=== PATIENT | female | born 1950 | race African-American/Black ===

== ENCOUNTER 2021-12-07 10:33 | Inpatient (IN) | payer MEDICARE, MEDICAID ==
[~2021-12-07] VITALS: Ht 160 cm; Wt 59.9 kg
[2021-12-07] MEDS ORDERED: SODIUM CHLORIDE 0.9% 1,000 ML IV ONE (11:30)
[2021-12-07 11:32] LABS: HEMATOCRIT. 35.3 % (36.0-48.0); HEMOGLOBIN. 12.1 g/dL (12.0-16.0); LYMPHOCYTES % 10.9 % (20.0-50.0); MEAN CORPUSCULAR HEMOGLOBIN 28.8 pg (28.0-32.0); MEAN CORPUSCULAR VOLUME 84.1 fL (81.0-99.0); MEAN PLATELET VOLUME 7.7 fl (7.4-10.4); MONOCYTES % 7.6 % (2.0-8.0); NEUTROPHILS % 81.5 % (40.0-76.0); PLATELET 214 x1000/uL (130-400); RED BLOOD CELL COUNT 4.19 mill/uL (4.2-5.4); RED CELL DISTRIBUTION WIDTH 13.5 % (11.6-14.6)
[2021-12-07 11:37] LABS: CHLORIDE 80 mEq/L (98-107)
[2021-12-07 11:40] LABS: INR 0.9; PROTHROMBIN TIME 10.2 sec (9.6-11.0)
[2021-12-07] MEDS ORDERED: ONDANSETRON HCL 4MG/2ML INJ IV PRN ×2 (16:45→18:15)
[2021-12-07] MEDS ORDERED: MORPHINE SULFATE 2 MG/ML CPJ (NOT FOR IM USE) IV PRN (16:45)
[2021-12-07 17:00] VITALS: BP 89/40
[2021-12-07] MEDS: FAMOTIDINE 20MG TABLET PO SCH ×2 (17:00→18:05)
[2021-12-07] MEDS ORDERED: AMLO10TA80 PO (17:22)
[2021-12-07] MEDS ORDERED: LOSA100T32 PO (17:22)
[2021-12-07] MEDS ORDERED: METH-773 PO (17:26)
[2021-12-07] MEDS ORDERED: METF-873 PO (17:26)
[2021-12-07] MEDS ORDERED: SPIR25TA6 PO (17:26)
[2021-12-07] MEDS ORDERED: CALC-1098 PO (17:26)
[2021-12-07] MEDS ORDERED: DYR5 PO (17:26)
[2021-12-07] MEDS ORDERED: SIMV-43 PO (17:26)
[2021-12-07] MEDS ORDERED: DEXT 5% WATER + KCL 40MEQ/L 1,000 ML IV SCH (18:00)
[2021-12-07] MEDS: POTASSIUM CHLORIDE 20MEQ TABLET SR PO NR ×2 (18:05→18:32)
[2021-12-07] MEDS ORDERED: MAGNESIUM/ALUMINUM HYDROXIDE/SIMETHICONE 30ML UDC PO PRN (18:15)
[2021-12-07] MEDS ORDERED: ACETAMINOPHEN 325MG TABLET PO PRN (18:15)
[2021-12-07] MEDS ORDERED: ENOXAPARIN 40MG/0.4ML SYR SUBCUT SCH (18:15)
[2021-12-07] MEDS ORDERED: IPRATROPIUM/ALBUTEROL 0.5-3(2.5)MG/3ML NEB NEB PRN (18:15)
[2021-12-07] MEDS ORDERED: CLONIDINE 0.1MG TABLET PO PRN (18:15)
[2021-12-07] MEDS ORDERED: CEFTRIAXONE 1 G PREMIX 50 ML IV SCH (18:30)
[2021-12-07] MEDS ORDERED: DEXTROSE 50% WATER 50ML SYRINGE IV PRN (18:30)
[2021-12-07] MEDS: SODIUM CHLORIDE 0.9% 1,000 ML IV SCH (18:30)
[2021-12-07] MEDS ORDERED: POTASSIUM CHLORIDE INJ 40 MEQ in DEXT 5% WATER 250 ML IV ONE (19:00)
[2021-12-07 19:11] LABS: FOLIC ACID (FOLATE) SERUM > 20.00 ng/mL (>5.38); VITAMIN B12 SERUM > 2000.0 pg/mL (211-911)
[2021-12-07] MEDS: ENOXAPARIN 30MG/0.3ML SYR SUBCUT SCH (19:49)
[2021-12-07] MEDS: CEFTRIAXONE 1,000 MG in DEXTROSE 5% WATER 50 ML IV SCH (19:49)
[2021-12-07 20:00] VITALS: BP 93/38
[2021-12-07] MEDS: INSULIN LISPRO 100 UNITS/ML SUBCUT SCH (21:00)
[2021-12-07] MEDS: BLOOD SUGAR DIAGNOSTIC STRIP TEST SCH (21:38)
[2021-12-07] MEDS: KCL 20MEQ/100ML X 2 FOR TOTAL KCL 40MEQ/200ML IV SCH ×2 (21:38→22:54)
[2021-12-07] MEDS: HYDROCODONE/ACETAMINOPHEN 5/325MG TABLET PO PRN (22:52)
[2021-12-07] MEDS ORDERED: SODIUM CHLORIDE 0.9% 500 ML IV NR (23:45)
[2021-12-08] VITALS: BP 86/36
[2021-12-08 04:00] VITALS: BP 96/43
[2021-12-08] MEDS: SODIUM CHLORIDE 0.9% 1,000 ML IV SCH ×2 (04:30→14:25)
[2021-12-08] MEDS ORDERED: NALOXONE HCL 0.4MG/ML VIAL IV PRN (05:30)
[2021-12-08] MEDS: INSULIN LISPRO 100 UNITS/ML SUBCUT SCH ×4 (05:52→20:08)
[2021-12-08] MEDS: BLOOD SUGAR DIAGNOSTIC STRIP TEST SCH ×4 (05:52→20:08)
[2021-12-08] MEDS: MORPHINE SULFATE 2 MG/ML CPJ (NOT FOR IM USE) IV PRN (05:58)
[2021-12-08 06:34] LABS: HEMATOCRIT 29.9 % (36.0-48.0); HEMOGLOBIN 10.2 g/dL (12.0-16.0); MEAN CORPUSCULAR HEMOGLOBIN 29.1 pg (28.0-32.0); MEAN CORPUSCULAR VOLUME 85.2 fL (81.0-99.0); PLATELET 157 x1000/uL (130-400); RED BLOOD CELL COUNT 3.51 mill/uL (4.2-5.4); RED CELL DISTRIBUTION WIDTH 13.6 % (11.6-14.6)
[2021-12-08 06:57] LABS: CHLORIDE 91 mEq/L (98-107)
[2021-12-08 08:00] VITALS: BP 90/45
[2021-12-08] MEDS: FAMOTIDINE 20MG TABLET PO SCH (09:00)
[2021-12-08] MEDS ORDERED: SODIUM CHLORIDE 0.9% 500 ML IV SCH (10:00)
[2021-12-08] MEDS ORDERED: SODIUM CHLORIDE 0.9% 1000ML BAG (SEPSIS BOLUS) IV ONE (10:00)
[2021-12-08 12:00] VITALS: BP 84/37
[2021-12-08] MEDS ORDERED: POTASSIUM CHLORIDE INJ 40 MEQ in DEXT 5% WATER 250 ML IV ONE (12:45)
[2021-12-08 13:15] LABS: CLARITY URINE CLOUDY (CLEAR); COLOR URINE YELLOW (YELLOW); KETONES URINE TRACE (NEGATIVE); LEUKOCYTE ESTERASE URINE 3+ (NEGATIVE); NITRITE URINE NEGATIVE (NEGATIVE); OCCULT BLOOD URINE 2+ (NEGATIVE); PROTEIN URINE 1+ (NEGATIVE); SPECIFIC GRAVITY URINE 1.016 (1.005-1.030); UROBILINOGEN URINE 0.2 E.U./dL (0.2-1.0)
[2021-12-08] MEDS: PANTOPRAZOLE SODIUM 40 MG/VIAL IV SCH (13:30)
[2021-12-08 13:36] LABS: *AMPHETAMINES SCREEN URINE NEGATIVE (NEGATIVE); *BARBITURATES SCREEN URINE NEGATIVE (NEGATIVE); *BENZODIAZEPINES SCREEN URINE NEGATIVE (NEGATIVE); *COCAINE SCREEN URINE NEGATIVE (NEGATIVE); CANNABINOID URINE SCREEN NEGATIVE (NEGATIVE); METHADONE URINE SCREEN NEGATIVE (NEGATIVE); OPIATES URINE SCREEN NEGATIVE (NEGATIVE); PHENCYCLIDINE URINE SCREEN NEGATIVE (NEGATIVE)
[2021-12-08 14:11] LABS: PHOSPHORUS URINE RANDOM 27 mg/dL
[2021-12-08] MEDS: ACETAMINOPHEN 325MG TABLET PO PRN (14:44)
[2021-12-08] MEDS: KCL 20MEQ/100ML X 2 FOR TOTAL KCL 40MEQ/200ML IV SCH ×2 (14:44→17:00)
[2021-12-08 16:00] VITALS: BP 111/46
[2021-12-08] MEDS: DOCUSATE SODIUM 100MG CAPSULE PO SCH (17:45)
[2021-12-08] MEDS: CEFTRIAXONE 1,000 MG in DEXTROSE 5% WATER 50 ML IV SCH (19:51)
[2021-12-08] MEDS: ENOXAPARIN 30MG/0.3ML SYR SUBCUT SCH (19:51)
[2021-12-08 20:00] VITALS: BP 106/42
[2021-12-08] MEDS ORDERED: POTASSIUM CHLORIDE 20MEQ/PACKET PO NR (20:00)
[2021-12-09] VITALS: BP 103/50
[2021-12-09] MEDS: SODIUM CHLORIDE 0.9% 1,000 ML IV SCH ×2 (00:30→15:08)
[2021-12-09 08:00] VITALS: BP 111/40
[2021-12-09 08:10] LABS: *CREATININE RANDOM URINE 169.3 mg/dL (Not Estab.); MICROALBUMIN RANDOM URINE 40.2 ug/mL (Not Estab.)
[2021-12-09 11:56] LABS: BASOPHILS % 0.3 % (0.0-2.0); EOSINOPHILS % 0.9 % (0.0-5.0); HEMATOCRIT. 29.5 % (36.0-48.0); HEMOGLOBIN. 10.1 g/dL (12.0-16.0); LYMPHOCYTES % 11.5 % (20.0-50.0); MEAN CORPUSCULAR HEMOGLOBIN 29.6 pg (28.0-32.0); MEAN CORPUSCULAR VOLUME 86.7 fL (81.0-99.0); MEAN PLATELET VOLUME 7.4 fl (7.4-10.4); MONOCYTES % 7.5 % (2.0-8.0); NEUTROPHILS % 79.8 % (40.0-76.0); PLATELET 151 x1000/uL (130-400); RED BLOOD CELL COUNT 3.41 mill/uL (4.2-5.4); RED CELL DISTRIBUTION WIDTH 13.7 % (11.6-14.6)
[2021-12-09 12:00] VITALS: BP 108/53
[2021-12-09] MEDS ORDERED: NA PHOS,M-B/NA PHOS,DI-BA ENEMA 118ML PR SCH (12:30)
[2021-12-09] MEDS: INSULIN LISPRO 100 UNITS/ML SUBCUT SCH ×3 (12:40→20:58)
[2021-12-09] MEDS: BLOOD SUGAR DIAGNOSTIC STRIP TEST SCH ×3 (13:17→20:58)
[2021-12-09 13:50] LABS: CHLORIDE 100 mEq/L (98-107)
[2021-12-09 14:15] LABS: PHOSPHORUS 1.6 mg/dL (2.5-4.9)
[2021-12-09] MEDS: DOCUSATE SODIUM 100MG CAPSULE PO SCH ×2 (15:08→17:09)
[2021-12-09] MEDS: PANTOPRAZOLE SODIUM 40 MG/VIAL IV SCH (15:08)
[2021-12-09 16:00] VITALS: BP 104/51
[2021-12-09 20:00] VITALS: BP 125/63
[2021-12-09] MEDS ORDERED: MAGNESIUM HYDROXIDE 400MG/5ML 30ML UDC PO NR (20:00)
[2021-12-09] MEDS ORDERED: POTASSIUM CHLORIDE 20MEQ/PACKET PO NR (20:00)
[2021-12-09] MEDS: ENOXAPARIN 30MG/0.3ML SYR SUBCUT SCH (20:57)
[2021-12-09] MEDS: CEFTRIAXONE 1,000 MG in DEXTROSE 5% WATER 50 ML IV SCH (20:57)
[2021-12-10] VITALS: BP 111/57
[2021-12-10 04:00] VITALS: BP 133/66
[2021-12-10] MEDS: SODIUM CHLORIDE 0.9% 1,000 ML IV SCH ×2 (04:00→09:49)
[2021-12-10 06:15] LABS: BASOPHILS % 0.2 % (0.0-2.0); EOSINOPHILS % 1.5 % (0.0-5.0); HEMATOCRIT. 29.7 % (36.0-48.0); HEMOGLOBIN. 10.2 g/dL (12.0-16.0); LYMPHOCYTES % 14.8 % (20.0-50.0); MEAN CORPUSCULAR HEMOGLOBIN 29.4 pg (28.0-32.0); MEAN CORPUSCULAR VOLUME 85.8 fL (81.0-99.0); MEAN PLATELET VOLUME 7.1 fl (7.4-10.4); MONOCYTES % 8.2 % (2.0-8.0); NEUTROPHILS % 75.3 % (40.0-76.0); PLATELET 148 x1000/uL (130-400); RED BLOOD CELL COUNT 3.46 mill/uL (4.2-5.4); RED CELL DISTRIBUTION WIDTH 13.5 % (11.6-14.6)
[2021-12-10] MEDS: INSULIN LISPRO 100 UNITS/ML SUBCUT SCH ×4 (06:15→21:00)
[2021-12-10] MEDS: BLOOD SUGAR DIAGNOSTIC STRIP TEST SCH ×4 (06:15→21:15)
[2021-12-10 06:56] LABS: CHLORIDE 111 mEq/L (98-107)
[2021-12-10 08:00] VITALS: BP 134/71
[2021-12-10 08:38] LABS: PHOSPHORUS 0.4 mg/dL (2.5-4.9)
[2021-12-10] MEDS: POTASSIUM-SODIUM PHOSPHATE POWDER PACKET PO SCH ×2 (09:46→16:11)
[2021-12-10] MEDS: PANTOPRAZOLE SODIUM 40 MG/VIAL IV SCH ×2 (09:46→16:10)
[2021-12-10] MEDS: DOCUSATE SODIUM 100MG CAPSULE PO SCH ×2 (09:46→16:11)
[2021-12-10] MEDS ORDERED: POTASSIUM PHOS,M-BASIC-D-BASIC 20 MMOL in DEXT 5% WATER 250 ML IV SCH (10:00)
[2021-12-10 10:55] LABS: HEMATOCRIT 29.7 % (36.0-48.0); HEMOGLOBIN 10.3 g/dL (12.0-16.0); MEAN CORPUSCULAR HEMOGLOBIN 29.6 pg (28.0-32.0); MEAN CORPUSCULAR VOLUME 85.9 fL (81.0-99.0); PLATELET 146 x1000/uL (130-400); RED BLOOD CELL COUNT 3.46 mill/uL (4.2-5.4); RED CELL DISTRIBUTION WIDTH 13.7 % (11.6-14.6)
[2021-12-10] MEDS: ACETAMINOPHEN 325MG TABLET PO PRN (11:50)
[2021-12-10 12:00] VITALS: BP 126/63
[2021-12-10] MEDS ORDERED: NA PHOS,M-B/NA PHOS,DI-BA ENEMA 118ML PR SCH (15:00)
[2021-12-10 16:00] VITALS: BP 114/62
[2021-12-10] MEDS ORDERED: MAGNESIUM HYDROXIDE 400MG/5ML 30ML UDC PO PRN (18:45)
[2021-12-10] MEDS ORDERED: SENNOSIDES 8.6MG TABLET PO PRN (18:45)
[2021-12-10 20:00] VITALS: BP 144/90
[2021-12-10] MEDS: CEFTRIAXONE 1,000 MG in DEXTROSE 5% WATER 50 ML IV SCH (21:14)
[2021-12-10] MEDS: ENOXAPARIN 30MG/0.3ML SYR SUBCUT SCH (21:15)
[2021-12-10] MEDS: MORPHINE SULFATE 2 MG/ML CPJ (NOT FOR IM USE) IV PRN (23:19)
[2021-12-11] VITALS: BP 117/60
[2021-12-11] MEDS: SENNOSIDES 8.6MG TABLET PO SCH ×3 (00:11→18:11)
[2021-12-11] MEDS: POLYVINYL ALCOHOL OPHTH DROPS 15ML EACHEYE SCH ×5 (00:12→23:53)
[2021-12-11] MEDS: SODIUM CHLORIDE 0.9% 1,000 ML IV SCH (03:09)
[2021-12-11 03:58] VITALS: BP 165/79
[2021-12-11] MEDS: INSULIN LISPRO 100 UNITS/ML SUBCUT SCH ×4 (06:19→20:37)
[2021-12-11] MEDS: BLOOD SUGAR DIAGNOSTIC STRIP TEST SCH ×4 (06:19→20:36)
[2021-12-11 07:08] LABS: BASOPHILS % 0.4 % (0.0-2.0); CHLORIDE 115 mEq/L (98-107); EOSINOPHILS % 2.4 % (0.0-5.0); HEMOGLOBIN. 9.6 g/dL (12.0-16.0); LYMPHOCYTES % 19.4 % (20.0-50.0); MEAN CORPUSCULAR HEMOGLOBIN 29.3 pg (28.0-32.0); MEAN CORPUSCULAR VOLUME 85.7 fL (81.0-99.0); MEAN PLATELET VOLUME 6.6 fl (7.4-10.4); MONOCYTES % 10.9 % (2.0-8.0); NEUTROPHILS % 66.9 % (40.0-76.0); PLATELET 139 x1000/uL (130-400); RED BLOOD CELL COUNT 3.27 mill/uL (4.2-5.4)
[2021-12-11 07:17] LABS: PHOSPHORUS 1.1 mg/dL (2.5-4.9)
[2021-12-11 08:00] VITALS: BP 138/70
[2021-12-11] MEDS: DOCUSATE SODIUM 100MG CAPSULE PO SCH (08:27)
[2021-12-11] MEDS: POLYETHYLENE GLYCOL 3350 (17GM) 1 DOSE PACK PO SCH (08:28)
[2021-12-11] MEDS: POTASSIUM-SODIUM PHOSPHATE POWDER PACKET PO SCH ×2 (08:29→16:54)
[2021-12-11] MEDS: PANTOPRAZOLE SODIUM 40 MG/VIAL IV SCH ×2 (08:29→16:54)
[2021-12-11] MEDS ORDERED: MAGNESIUM 2 G PREMIX 50 ML IV ONE (11:00)
[2021-12-11 12:00] VITALS: BP 130/60
[2021-12-11] MEDS: SODIUM CHLORIDE 0.45% 1,000 ML IV SCH (12:06)
[2021-12-11 12:10] LABS: HEMATOCRIT 29.7 % (36.0-48.0); HEMOGLOBIN 9.9 g/dL (12.0-16.0); MEAN CORPUSCULAR HEMOGLOBIN 28.8 pg (28.0-32.0); MEAN CORPUSCULAR VOLUME 86.8 fL (81.0-99.0); PLATELET 154 x1000/uL (130-400); RED BLOOD CELL COUNT 3.43 mill/uL (4.2-5.4); RED CELL DISTRIBUTION WIDTH 13.7 % (11.6-14.6)
[2021-12-11] MEDS ORDERED: POTASSIUM PHOS,M-BASIC-D-BASIC 15 MMOL in DEXT 5% WATER 245 ML IV NR (12:30)
[2021-12-11] MEDS ORDERED: SODIUM PHOS,M-BASIC-D-BASIC 15 MM in DEXT 5% WATER 245 ML IV ONE ×2 (14:00→17:00)
[2021-12-11] MEDS ORDERED: MAGNESIUM 2 G PREMIX 50 ML IV NR (14:00)
[2021-12-11 16:00] VITALS: BP 150/77
[2021-12-11] MEDS: MAGNESIUM HYDROXIDE 400MG/5ML 30ML UDC PO SCH (16:54)
[2021-12-11] MEDS: DOCUSATE SODIUM 250MG CAPSULE PO SCH (16:54)
[2021-12-11 20:00] VITALS: BP 152/74
[2021-12-11] MEDS: CEFTRIAXONE 1,000 MG in DEXTROSE 5% WATER 50 ML IV SCH (21:11)
[2021-12-11] MEDS: ACETAMINOPHEN 325MG TABLET PO PRN (21:12)
[2021-12-11] MEDS: ENOXAPARIN 30MG/0.3ML SYR SUBCUT SCH (21:12)
[2021-12-12] VITALS: BP 149/84
[2021-12-12 04:00] VITALS: BP 126/76
[2021-12-12 06:03] LABS: BASOPHILS % 0.5 % (0.0-2.0); EOSINOPHILS % 2.4 % (0.0-5.0); HEMATOCRIT. 31.8 % (36.0-48.0); HEMOGLOBIN. 10.7 g/dL (12.0-16.0); LYMPHOCYTES % 16.9 % (20.0-50.0); MEAN CORPUSCULAR HEMOGLOBIN 28.8 pg (28.0-32.0); MEAN CORPUSCULAR VOLUME 85.9 fL (81.0-99.0); MEAN PLATELET VOLUME 7.2 fl (7.4-10.4); MONOCYTES % 13.4 % (2.0-8.0); NEUTROPHILS % 66.8 % (40.0-76.0); PLATELET 147 x1000/uL (130-400); RED CELL DISTRIBUTION WIDTH 13.8 % (11.6-14.6)
[2021-12-12 06:21] LABS: CHLORIDE 112 mEq/L (98-107)
[2021-12-12 06:28] LABS: PHOSPHORUS 1.2 mg/dL (2.5-4.9)
[2021-12-12] MEDS: SODIUM CHLORIDE 0.45% 1,000 ML IV SCH (06:46)
[2021-12-12] MEDS: POLYVINYL ALCOHOL OPHTH DROPS 15ML EACHEYE SCH ×4 (06:46→21:18)
[2021-12-12] MEDS: BLOOD SUGAR DIAGNOSTIC STRIP TEST SCH ×4 (06:47→21:00)
[2021-12-12] MEDS: INSULIN LISPRO 100 UNITS/ML SUBCUT SCH ×4 (06:47→21:00)
[2021-12-12 08:00] VITALS: BP 126/80
[2021-12-12] MEDS: PANTOPRAZOLE SODIUM 40 MG/VIAL IV SCH ×2 (08:25→15:46)
[2021-12-12] MEDS: SENNOSIDES 8.6MG TABLET PO SCH ×2 (08:25→15:46)
[2021-12-12] MEDS: POTASSIUM-SODIUM PHOSPHATE POWDER PACKET PO SCH ×4 (08:26→15:48)
[2021-12-12] MEDS: POLYETHYLENE GLYCOL 3350 (17GM) 1 DOSE PACK PO SCH (08:26)
[2021-12-12] MEDS: DOCUSATE SODIUM 250MG CAPSULE PO SCH ×2 (08:26→15:46)
[2021-12-12] MEDS: MAGNESIUM OXIDE 400MG TABLET PO SCH ×2 (08:29→15:46)
[2021-12-12] MEDS ORDERED: SODIUM PHOS,M-BASIC-D-BASIC 30 MM in DEXT 5% WATER 500 ML IV SCH (10:00)
[2021-12-12] MEDS ORDERED: MAGNESIUM 4 G PREMIX 100 ML IV SCH (10:00)
[2021-12-12 12:00] VITALS: BP 129/82
[2021-12-12] MEDS: HYDROCODONE/ACETAMINOPHEN 5/325MG TABLET PO PRN (12:10)
[2021-12-12] MEDS: MAGNESIUM HYDROXIDE 400MG/5ML 30ML UDC PO SCH (15:45)
[2021-12-12 16:00] VITALS: BP 103/70
[2021-12-12 20:00] VITALS: BP 120/75
[2021-12-12] MEDS: CEFTRIAXONE 1,000 MG in DEXTROSE 5% WATER 50 ML IV SCH (21:17)
[2021-12-12] MEDS: ENOXAPARIN 30MG/0.3ML SYR SUBCUT SCH (21:18)
[2021-12-13] VITALS: BP 130/85
[2021-12-13] MEDS: SODIUM CHLORIDE 0.45% 1,000 ML IV SCH ×2 (03:00→23:49)
[2021-12-13 04:00] VITALS: BP 125/84
[2021-12-13] MEDS: POLYVINYL ALCOHOL OPHTH DROPS 15ML EACHEYE SCH ×4 (05:18→23:25)
[2021-12-13] MEDS: BLOOD SUGAR DIAGNOSTIC STRIP TEST SCH ×4 (05:42→21:24)
[2021-12-13] MEDS: INSULIN LISPRO 100 UNITS/ML SUBCUT SCH ×4 (05:43→21:00)
[2021-12-13 08:00] VITALS: BP 114/75
[2021-12-13] MEDS: POTASSIUM-SODIUM PHOSPHATE POWDER PACKET PO SCH ×3 (09:00→18:28)
[2021-12-13] MEDS: PANTOPRAZOLE SODIUM 40 MG/VIAL IV SCH ×2 (09:01→17:00)
[2021-12-13] MEDS: MAGNESIUM OXIDE 400MG TABLET PO SCH (09:02)
[2021-12-13] MEDS: POLYETHYLENE GLYCOL 3350 (17GM) 1 DOSE PACK PO SCH (09:02)
[2021-12-13] MEDS: DOCUSATE SODIUM 250MG CAPSULE PO SCH ×2 (09:02→18:27)
[2021-12-13] MEDS: SENNOSIDES 8.6MG TABLET PO SCH ×2 (09:03→18:28)
[2021-12-13 10:30] LABS: BASOPHILS % 0.8 % (0.0-2.0); EOSINOPHILS % 2.6 % (0.0-5.0); HEMATOCRIT. 30.7 % (36.0-48.0); HEMOGLOBIN. 10.4 g/dL (12.0-16.0); LYMPHOCYTES % 19.7 % (20.0-50.0); MEAN CORPUSCULAR HEMOGLOBIN 29.1 pg (28.0-32.0); MEAN CORPUSCULAR VOLUME 85.7 fL (81.0-99.0); MEAN PLATELET VOLUME 7.4 fl (7.4-10.4); MONOCYTES % 12.3 % (2.0-8.0); NEUTROPHILS % 64.6 % (40.0-76.0); PLATELET 152 x1000/uL (130-400); RED BLOOD CELL COUNT 3.58 mill/uL (4.2-5.4); RED CELL DISTRIBUTION WIDTH 13.9 % (11.6-14.6)
[2021-12-13 10:40] LABS: CHLORIDE 109 mEq/L (98-107)
[2021-12-13 10:46] LABS: PHOSPHORUS 2.6 mg/dL (2.5-4.9)
[2021-12-13 12:00] VITALS: BP 109/68
[2021-12-13] MEDS: BISACODYL 10MG SUPP PR SCH (15:15)
[2021-12-13 16:00] VITALS: BP 108/70
[2021-12-13] MEDS: MAGNESIUM HYDROXIDE 400MG/5ML 30ML UDC PO SCH (18:28)
[2021-12-13 20:00] VITALS: BP 119/73
[2021-12-13] MEDS: ENOXAPARIN 30MG/0.3ML SYR SUBCUT SCH (21:24)
[2021-12-14] VITALS: BP 113/60
[2021-12-14 04:00] VITALS: BP 121/68
[2021-12-14] MEDS: ACETAMINOPHEN 325MG TABLET PO PRN ×2 (05:00→17:38)
[2021-12-14] MEDS: POLYVINYL ALCOHOL OPHTH DROPS 15ML EACHEYE SCH ×4 (05:00→21:14)
[2021-12-14] MEDS: BLOOD SUGAR DIAGNOSTIC STRIP TEST SCH ×3 (06:21→17:37)
[2021-12-14] MEDS: INSULIN LISPRO 100 UNITS/ML SUBCUT SCH (06:21)
[2021-12-14 06:34] LABS: CHLORIDE 110 mEq/L (98-107)
[2021-12-14 06:41] LABS: PHOSPHORUS 2.2 mg/dL (2.5-4.9)
[2021-12-14 06:46] LABS: EOSINOPHILS % 1.9 % (0.0-5.0); HEMATOCRIT. 26.8 % (36.0-48.0); HEMOGLOBIN. 9.4 g/dL (12.0-16.0); LYMPHOCYTES % 19.3 % (20.0-50.0); MEAN CORPUSCULAR HEMOGLOBIN 29.9 pg (28.0-32.0); MEAN PLATELET VOLUME 7.6 fl (7.4-10.4); MONOCYTES % 12.6 % (2.0-8.0); NEUTROPHILS % 65.2 % (40.0-76.0); PLATELET 138 x1000/uL (130-400); RED BLOOD CELL COUNT 3.15 mill/uL (4.2-5.4); RED CELL DISTRIBUTION WIDTH 13.7 % (11.6-14.6)
[2021-12-14 08:00] VITALS: BP 97/51
[2021-12-14] MEDS: DOCUSATE SODIUM 250MG CAPSULE PO SCH ×2 (08:56→17:37)
[2021-12-14] MEDS: POLYETHYLENE GLYCOL 3350 (17GM) 1 DOSE PACK PO SCH (08:56)
[2021-12-14] MEDS: POTASSIUM-SODIUM PHOSPHATE POWDER PACKET PO SCH ×2 (08:56→17:37)
[2021-12-14] MEDS: PANTOPRAZOLE SODIUM 40 MG/VIAL IV SCH ×2 (08:56→17:38)
[2021-12-14] MEDS: SENNOSIDES 8.6MG TABLET PO SCH ×2 (08:56→17:37)
[2021-12-14] MEDS: BISACODYL 10MG SUPP PR SCH (08:57)
[2021-12-14 12:00] VITALS: BP 123/78
[2021-12-14 16:00] VITALS: BP 116/59
[2021-12-14] MEDS: MAGNESIUM HYDROXIDE 400MG/5ML 30ML UDC PO SCH (17:37)
[2021-12-14] MEDS: SODIUM CHLORIDE 0.45% 1,000 ML IV SCH (17:38)
[2021-12-14 18:26] LABS: HEMATOCRIT 28.3 % (36.0-48.0); HEMOGLOBIN 9.4 g/dL (12.0-16.0)
[2021-12-14 20:00] VITALS: BP 100/52
[2021-12-14] MEDS: ENOXAPARIN 30MG/0.3ML SYR SUBCUT SCH (21:14)
[2021-12-15] VITALS: BP 110/56
[2021-12-15 00:38] LABS: HEMATOCRIT 26.9 % (36.0-48.0); HEMOGLOBIN 8.9 g/dL (12.0-16.0)
[2021-12-15 04:00] VITALS: BP 118/55
[2021-12-15] MEDS: POLYVINYL ALCOHOL OPHTH DROPS 15ML EACHEYE SCH ×2 (05:51→11:21)
[2021-12-15 06:58] LABS: BASOPHILS % 0.8 % (0.0-2.0); EOSINOPHILS % 1.5 % (0.0-5.0); HEMATOCRIT. 25.3 % (36.0-48.0); HEMOGLOBIN. 8.7 g/dL (12.0-16.0); LYMPHOCYTES % 21.2 % (20.0-50.0); MEAN CORPUSCULAR HEMOGLOBIN 29.3 pg (28.0-32.0); MEAN PLATELET VOLUME 7.7 fl (7.4-10.4); MONOCYTES % 13.2 % (2.0-8.0); NEUTROPHILS % 63.3 % (40.0-76.0); PLATELET 142 x1000/uL (130-400); RED BLOOD CELL COUNT 2.97 mill/uL (4.2-5.4); RED CELL DISTRIBUTION WIDTH 13.9 % (11.6-14.6)
[2021-12-15 07:28] LABS: CHLORIDE 111 mEq/L (98-107)
[2021-12-15 08:00] VITALS: BP 127/64
[2021-12-15] MEDS: BISACODYL 10MG SUPP PR SCH (09:00)
[2021-12-15] MEDS: SENNOSIDES 8.6MG TABLET PO SCH (09:21)
[2021-12-15] MEDS: PANTOPRAZOLE SODIUM 40 MG/VIAL IV SCH (09:21)
[2021-12-15] MEDS: POLYETHYLENE GLYCOL 3350 (17GM) 1 DOSE PACK PO SCH (09:21)
[2021-12-15] MEDS: POTASSIUM-SODIUM PHOSPHATE POWDER PACKET PO SCH (09:21)
[2021-12-15] MEDS: DOCUSATE SODIUM 250MG CAPSULE PO SCH (09:21)
[2021-12-15 12:00] VITALS: BP 118/67
[2021-12-15 13:06] LABS: OVA & PARASITE EXAM Final report (.)
[2021-12-15 14:10] VITALS: BP 118/67
[2021-12-15 15:09] LABS: HEMATOCRIT 27.1 % (36.0-48.0); HEMOGLOBIN 8.9 g/dL (12.0-16.0)
[2021-12-15] MEDS ORDERED: SPIR25TA PO (18:41)
[2021-12-15] MEDS ORDERED: BACL-141 PO (18:45)
[2021-12-24] MEDS ORDERED: WHEA152P PO (08:30)
[2021-12-24] MEDS ORDERED: XAR15 PO (08:30)
[2021-12-24] MEDS ORDERED: SENN1TAB35 PO (08:30)
[2021-12-24] MEDS ORDERED: CALC-1098 PO (08:30)
[2021-12-24] MEDS ORDERED: POLY17PO3 PO (08:30)
[2021-12-24] MEDS ORDERED: FAMO20TA8 PO (08:30)
[2021-12-24] MEDS ORDERED: MOM PO (08:30)
[2021-12-24] MEDS ORDERED: RIVA20TA PO (08:30)
== END 2021-12-15 15:12 | DRG 871 ==
LOC: ER 11:34 → EDBEDREQ 13:34 → EDBEDREQTM 13:34 → ENRESERV 13:35 → 8WST 15:08
PROVIDERS: ADMIT Internal Medicine; ATTEND Internal Medicine
DX: A41.9 Sepsis, unspecified organism (principal); N17.0 Acute kidney failure with tubular necrosis; E87.1 Hypo-osmolality and hyponatremia; K56.7 Ileus, unspecified; E87.2 Acidosis; K92.2 Gastrointestinal hemorrhage, unspecified; R41.4 Neurologic neglect syndrome; K62.89 Other specified diseases of anus and rectum; E11.22 Type 2 diabetes mellitus with diabetic chronic kidney disease; Z20.822 Contact with and (suspected) exposure to COVID-19; E86.0 Dehydration; E87.6 Hypokalemia; I12.9 Hypertensive chronic kidney disease with stage 1 through stage 4 chronic kidney disease, or unspecified chronic kidney disease; N18.9 Chronic kidney disease, unspecified; R13.10 Dysphagia, unspecified; K21.9 Gastro-esophageal reflux disease without esophagitis; I25.10 Atherosclerotic heart disease of native coronary artery without angina pectoris; E78.5 Hyperlipidemia, unspecified; K56.41 Fecal impaction; R26.9 Unspecified abnormalities of gait and mobility; I95.9 Hypotension, unspecified; D53.9 Nutritional anemia, unspecified; K59.00 Constipation, unspecified; R62.7 Adult failure to thrive; E83.39 Other disorders of phosphorus metabolism; H53.461 Homonymous bilateral field defects, right side; H54.7 Unspecified visual loss; N20.0 Calculus of kidney; Z82.49 Family history of ischemic heart disease and other diseases of the circulatory system; Z79.4 Long term (current) use of insulin; Z68.23 Body mass index [BMI] 23.0-23.9, adult
CPT/HCPCS: 36415; 70551; 71045; 74018; 74176; 76700; 76770; 80048; 80053; 80076; 80305; 80320; 81003; 82043; 82270; 82570; 82607; 82728; 82746; 82962; 83036; 83540; 83550; 83605; 83735; 84100; 84105; 84145; 84300; 84443; 85014; 85018; 85025; 85027; 85044; 87177; 87209; 87426; 87493; 92610; 93005; 93306; 97162; 97166; 97530; 97535; 99291; C1893; C9113; C9803; J0696; J1650; J1815; J2270; J2405; J3475; J3480; J3490; J7030; J7060; G0480